=== PATIENT | male | born 1985 ===

== ENCOUNTER 2017-03-18 22:55 | Emergency (ER) | payer SELFPAY ==
[2017-03-18 23:04] VITALS: BP 135/74; PULSE 97; RESP 16; TEMP 98; O2SAT 100
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
--- NOTE | 2017-03-19 10:12 | CT ---
PROCEDURE: CT HEAD WITHOUT CONTRAST. HISTORY: head injury COMPARISON: None available. TECHNIQUE: Axial computed tomography images were obtained through the head/brain without intravenous contrast. Radiation dose: Total exam DLP = 880.28 mGy-cm. This CT exam was performed using one or more of the following dose reduction techniques: Automated exposure control, adjustment of the mA and/or kV according to patient size, and/or use of iterative reconstruction technique. FINDINGS: HEMORRHAGE: No intracranial hemorrhage. BRAIN: No mass effect or edema. No atrophy or chronic microvascular ischemic changes.Please note that MRI with diffusion imaging is more sensitive in the detection of acute ischemic event. VENTRICLES: No hydrocephalus. CALVARIUM: Unremarkable. PARANASAL SINUSES: Mucosal thickening of the bilateral maxillary, ethmoid, sphenoid, and frontal sinuses. MASTOID AIR CELLS: Unremarkable as visualized. No inflammatory changes. OTHER FINDINGS: Opacification of bilateral external auditory canals, likely cerumen. IMPRESSION: No acute intracranial pathology identified. Findings consistent with mild pansinusitis as above. Preliminary impression was provided by virtual radiologic.
== END 2017-03-19 04:02 | disposition home or self-care (01) ==
LOC: H.ER 22:55
DX: F10.129 Alcohol abuse with intoxication, unspecified (principal); S09.90XA Unspecified injury of head, initial encounter; W19.XXXA Unspecified fall, initial encounter; Y92.89 Other specified places as the place of occurrence of the external cause
CPT/HCPCS: 70450; 99281; G0480